=== PATIENT | male | born 1945 | race Caucasian/White ===

== ENCOUNTER → 2018-02-18 | Outpatient (CLI) | payer BC ==
[~2018-02-18] MED LIST: ACIPHEX; ALLEGRA180 MG PO; ANTIVERT 25MG25 MG PO; ASPIR-LOW81 MG PO; ASPIRIN 81M81 MG/TA2 PO; ASPIRIN E.C. 8181 MG PO; CELEBREX50 MG PO; CEPHALEXIN500 M1 PO; CHOLESTEROL MED; CIALIS5 MG PO; COLESTID 1GM1 G PO; COREG 25MG25 MG/TAB PO; COREG25 MG PO; CORGARD 40M40 MG/TAB PO; FLONASE NASAL S16 GM NS; HCTZ 25MG25 MG PO; KLONOPIN 1MG1 MG PO; KLONOPIN1 MG PO; LIPITOR20 MG PO; LIPITOR40 MG PO; LISINOPRIL10 MG PO; LISINOPRIL20 MG PO; LORTAB 7.5/5001 TAB PO; MIRAPEX 0.125MG PO; MIRAPEX 1MG PO; MIRAPEX PO; MIRAPEX0.25 MG PO; MIRAPEX0.5 MG PO; NEURONTIN300 MG/CAP PO; NEXIUM40 MG PO; NORCO 325 MG-51 TAB PO; NORCO 325 MG-7.1 TAB PO; NORVASC2.5 MG PO; PRILOSEC10 MG PO; PRINIVIL20 MG PO; PRINIVIL40 MG PO; PROTONIX 40MG T40 MG PO; PROTONIX40 MG PO; PROVENTIL0.09 MG/A1 IH; PROZAC 20MG20 MG PO; PROZAC20 MG PO; RHINOCORT0.032 MG/1 NS; ULTRAM ER200 MG PO; ZOFRAN 4MG T4 MG/TAB PO; ZOFRAN4 M1 PO
== END ==
LOC: COL.VAS 10:11
DX: I08.8 Other rheumatic multiple valve diseases (principal); R06.02 Shortness of breath; Z95.2 Presence of prosthetic heart valve

== ENCOUNTER → 2018-04-11 | Outpatient (CLI) | payer BC | LOC: COL.RAD 10:08 | DX: I71.2 Thoracic aortic aneurysm, without rupture (principal); Z95.2 Presence of prosthetic heart valve; Z98.890 Other specified postprocedural states | CPT/HCPCS: Q9967 ==

== ENCOUNTER 2019-06-27 03:54 | Emergency (ER) | payer BC ==
[~2019-06-27] VITALS: Ht 188 cm; Wt 109.1 kg
[2019-06-27 04:00] VITALS: TEMP 97.8
[2019-06-27 05:20] LABS: BASO % 0.3 % (0.0-2.0); EOS # 0.1 (0.0-0.7); EOS % 0.9 % (0-4.0); GRAN # 8.8 (1.4-6.5); GRAN % 89.9 % (42.2-75.2); HEMATOCRIT 46.8 % (42.0-52.0); HEMOGLOBIN 15.9 g/dl (13.5-18.0); LYMPH # 0.2 (1.2-3.4); LYMPH % 2.3 % (20.0-51.0); MEAN CELL VOLUME 88 fl (80.0-100.0); MEAN CORPUSCULAR HEMOGLOBIN 30 pg (27.0-31.0); MEAN CORPUSCULAR HGB CONC 34 g/dl (33.0-37.0); MEAN PLATELET VOLUME 9.5 fl (7.4-10.4); MONO # 0.6 (0.1-0.6); MONO % 6.3 % (1.7-9.3); PLATELET COUNT 160 K/mm3 (130-400); RED BLOOD COUNT 5.33 M/mm3 (4.20-5.60); REDCELL DISTRIBUTION WIDTH-CV 12.9 % (11.5-14.5)
[2019-06-27 05:25] LABS: INR 1.2 (0.8-3.0); PROTHROMBIN TIME 14.2 SECONDS (9.7-12.8)
[2019-06-27 05:32] LABS: ALANINE AMINOTRANSFERASE 18 U/L (21-72); ALKALINE PHOSPHATASE 112 U/L (50-136); ANION GAP 11 mmol/L (7-16); AST,SGOT 26 U/L (15-37); BILIRUBIN,TOTAL 1.9 mg/dL (0.0-1.0); BLOOD UREA NITROGEN 26 mg/dL (9-20); CALCIUM 9.1 mg/dL (8.4-10.2); CARBON DIOXIDE 22 mmol/L (22-30); CHLORIDE 105 mmol/L (98-107); CREATININE, serum 0.97 (0.66-1.25); GLUCOSE 115 mg/dL (74-106); LIPASE 106 U/L (23-300); POTASSIUM 3.9 mmol/L (3.4-5.0); SODIUM 138 mmol/L (137-145); TOTAL PROTEIN 6.5 gm/dL (6.4-8.2)
[2019-06-27 05:51] LABS: TROPONIN-I < 0.012 ng/mL (0.000-0.035)
[2019-06-27] MEDS ORDERED: PHENERGAN 25 TA25 MG PO (09:06)
[2019-06-27 11:20] VITALS: BP 115/64; PULSE 70
== END 2019-06-27 12:09 | disposition home or self-care (01) ==
LOC: COL.ER 03:54
PROVIDERS: Emergency Medicine
DX: R07.89 Other chest pain (principal); R11.2 Nausea with vomiting, unspecified; R19.7 Diarrhea, unspecified; I10 Essential (primary) hypertension; E78.5 Hyperlipidemia, unspecified; Z95.9 Presence of cardiac and vascular implant and graft, unspecified; Z87.891 Personal history of nicotine dependence; Z79.82 Long term (current) use of aspirin
CPT/HCPCS: C9113; J2270; J2405; J2550; J7030; Q9967

== ENCOUNTER 2019-11-08 10:30 | Observation (INO) | payer BC, MEDICARE ==
[~2019-11-08] VITALS: Ht 188 cm; Wt 109.2 kg
[~2019-11-08 10:30] MED LIST changes: +PHENERGAN 25 TA25 MG PO
[2019-11-08 11:24] LABS: COLLECTION METHOD CLEAN CATCH
[2019-11-08 11:27] LABS: BASO # 0.1 (0.0-0.2); BASO % 0.8 % (0.0-2.0); EOS # 0.2 (0.0-0.7); EOS % 2.1 % (0-4.0); GRAN # 5.2 (1.4-6.5); GRAN % 72.6 % (42.2-75.2); HEMATOCRIT 40.2 % (42.0-52.0); HEMOGLOBIN 13.2 g/dl (13.5-18.0); LYMPH # 1.1 (1.2-3.4); LYMPH % 14.8 % (20.0-51.0); MEAN CELL VOLUME 91 fl (80.0-100.0); MEAN CORPUSCULAR HEMOGLOBIN 30 pg (27.0-31.0); MEAN CORPUSCULAR HGB CONC 33 g/dl (33.0-37.0); MEAN PLATELET VOLUME 9.8 fl (7.4-10.4); MONO # 0.7 (0.1-0.6); MONO % 9.6 % (1.7-9.3); PLATELET COUNT 146 K/mm3 (130-400); RED BLOOD COUNT 4.44 M/mm3 (4.20-5.60)
[2019-11-08 11:33] LABS: MUCOUS Present /lpf; PH 6 (5-8); SQUAMOUS EPITHELIAL None Seen /hpf; URINE APPEARANCE Clear; URINE BACTERIA None Seen /hpf; URINE BILIRUBIN Negative (NEGATIVE); URINE BLOOD Negative (NEGATIVE); URINE COLOR Yellow; URINE GLUCOSE Negative (NEGATIVE); URINE KETONE Negative (NEGATIVE); URINE LEUKOCYTE ESTERASE Negative (NEGATIVE); URINE NITRATE Negative (NEGATIVE); URINE PROTEIN(semi-quant) Negative (NEGATIVE); URINE RBC 0-2 /hpf; URINE UROBILINOGEN >=4.0 mg/dL (NEGATIVE)
[2019-11-08 11:45] LABS: CREATININE, serum 1.36 (0.66-1.25); POTASSIUM 4.8 mmol/L (3.4-5.0)
[2019-11-08 11:52] LABS: BILIRUBIN,TOTAL 45.6 mg/dL (0.0-1.0)
[2019-11-08 11:58] LABS: CALCIUM 5.9 mg/dL (8.4-10.2)
[2019-11-08 12:14] LABS: ALBUMIN 3.7 gm/dL (3.5-5.0); TOTAL PROTEIN 6.1 gm/dL (6.4-8.2)
[2019-11-08 12:58] LABS: ALBUMIN 3.5 gm/dL (3.5-5.0); BILIRUBIN,TOTAL 1.2 mg/dL (0.0-1.0); CALCIUM 8.8 mg/dL (8.4-10.2); CREATININE, serum 0.9 (0.66-1.25); POTASSIUM 4.1 mmol/L (3.4-5.0); TOTAL PROTEIN 5.8 gm/dL (6.4-8.2)
[2019-11-08 13:41] LABS: BILIRUBIN,TOTAL 1.2 mg/dL (0.0-1.0)
[2019-11-08 13:45] LABS: C-REACTIVE PROTEIN < 0.5 mg/dL (0.0-0.9)
[2019-11-08 14:01] LABS: BILIRUBIN,DIRECT 0.1 mg/dL (0.0-0.4)
[2019-11-08] MEDS ORDERED: COZAAR 25MG25 MG/TAB PO (16:07)
[2019-11-08 17:46] VITALS: BP 159/65; PULSE 48; TEMP 97.8
[2019-11-08 17:48] VITALS: BP 159/65; PULSE 48; TEMP 97.8
[2019-11-08 19:24] VITALS: BP 112/52; PULSE 49; TEMP 97.5
--- NOTE | 2019-11-08 20:19 | NUR ---
Spoke with pt regarding CPAP. Pt refuses CPAP stating that he has not worn on for years since he discovered "breathe right strips" work well for him.
--- NOTE | 2019-11-08 21:30 | NUR ---
PATIENT IN BED, TAKES HS MEDS. DENIES NEED FOR PAIN MEDS AT THIS TIME. IVF INFUSING TO LEFT AC WITHOUT PROBLEM. ABDOMEN SOFT, BS ACTIVE. TAKES SNACK AT THIS TIME.
[2019-11-08 23:21] VITALS: BP 118/55; PULSE 48; TEMP 97.4
--- NOTE | 2019-11-09 | NUR ---
TAKES SCHEDULED MOTRIN WITHOUT PROBLEM. DENIES NEED FOR SOMETHING STRONGER FOR PAIN.
[2019-11-09 03:10] VITALS: BP 130/51; PULSE 49; TEMP 98.2
--- NOTE | 2019-11-09 05:39 | NUR ---
Pt awake, lab drawn. Takes AM meds at this time. Reports only "soreness" to right flank and feels much better.
[2019-11-09 06:10] LABS: BASO # 0.1 (0.0-0.2); BASO % 1.2 % (0.0-2.0); EOS # 0.2 (0.0-0.7); EOS % 4.4 % (0-4.0); GRAN # 2.4 (1.4-6.5); GRAN % 56.4 % (42.2-75.2); HEMOGLOBIN 11.7 g/dl (13.5-18.0); LYMPH # 1.1 (1.2-3.4); LYMPH % 26.2 % (20.0-51.0); MEAN CELL VOLUME 92 fl (80.0-100.0); MEAN CORPUSCULAR HEMOGLOBIN 30 pg (27.0-31.0); MEAN CORPUSCULAR HGB CONC 32 g/dl (33.0-37.0); MEAN PLATELET VOLUME 10.3 fl (7.4-10.4); MONO # 0.5 (0.1-0.6); MONO % 11.6 % (1.7-9.3); PLATELET COUNT 128 K/mm3 (130-400); RED BLOOD COUNT 3.96 M/mm3 (4.20-5.60)
[2019-11-09 06:12] LABS: HEMATOCRIT 36.3 % (42.0-52.0)
[2019-11-09 06:16] LABS: ALANINE AMINOTRANSFERASE 18 U/L (21-72); ALKALINE PHOSPHATASE 84 U/L (50-136); ANION GAP 6 mmol/L (7-16); AST,SGOT 15 U/L (15-37); BILIRUBIN,TOTAL 0.7 mg/dL (0.0-1.0); BLOOD UREA NITROGEN 21 mg/dL (9-20); CALCIUM 8.6 mg/dL (8.4-10.2); CARBON DIOXIDE 27 mmol/L (22-30); CHLORIDE 105 mmol/L (98-107); CREATININE, serum 1.06 (0.66-1.25); GLUCOSE 84 mg/dL (74-106); MAGNESIUM 1.9 mg/dL (1.6-2.3); POTASSIUM 4.1 mmol/L (3.4-5.0); SODIUM 138 mmol/L (137-145); TOTAL PROTEIN 5.1 gm/dL (6.4-8.2)
[2019-11-09 06:31] LABS: TROPONIN-I < 0.012 ng/mL (0.000-0.035)
[2019-11-09 08:02] VITALS: BP 114/43; PULSE 51; TEMP 97.6
[2019-11-09] MEDS ORDERED: FLEXERIL 1010 MG/TAB PO (08:54)
--- NOTE | 2019-11-09 10:20 | NUR ---
Patient alert and oriented, answers questions appropriately. See assessment. Abdomen soft, non tender, non distended. Bowel sounds active x4 quads. +Flatus. No c/o abdominal pain or discomfort. No other c/o at this time.
[2019-11-09] MEDS ORDERED: NORCO 325 MG-51 TAB PO (10:25)
--- NOTE | 2019-11-09 10:39 | NUR ---
Dr Dorsey in to see patient.
--- NOTE | 2019-11-09 11:12 | NUR ---
Discharge instructions reviewed with patient and spouse, verbalized understanding. Discharged ambulatory to auto/home with spouse at 1110.
== END 2019-11-09 11:15 | disposition home or self-care (01) ==
LOC: COL.ER 10:30 → SURG 14:40
PROVIDERS: Emergency Medicine; ADMIT Internal Medicine
DX: R10.9 Unspecified abdominal pain (principal); I10 Essential (primary) hypertension; E78.5 Hyperlipidemia, unspecified; G47.33 Obstructive sleep apnea (adult) (pediatric); Z87.19 Personal history of other diseases of the digestive system; Z79.82 Long term (current) use of aspirin; Z85.46 Personal history of malignant neoplasm of prostate; Z90.79 Acquired absence of other genital organ(s); Z95.2 Presence of prosthetic heart valve; Z96.652 Presence of left artificial knee joint; Z87.891 Personal history of nicotine dependence; Z82.3 Family history of stroke; Z82.49 Family history of ischemic heart disease and other diseases of the circulatory system; Z80.41 Family history of malignant neoplasm of ovary; G62.9 Polyneuropathy, unspecified
CPT/HCPCS: A4216; G0378; J0696; J1170; J1650; J1885; J2270; J2405; J7030; Q9967

== ENCOUNTER → 2020-01-22 | Outpatient (CLI) | payer BC ==
[~2020-01-22] MED LIST changes: +COZAAR 25MG25 MG/TAB PO; +FLEXERIL 1010 MG/TAB PO
== END ==
LOC: COL.RAD 12:07
DX: K80.20 Calculus of gallbladder without cholecystitis without obstruction (principal); Z98.890 Other specified postprocedural states; R42 Dizziness and giddiness; R06.00 Dyspnea, unspecified
CPT/HCPCS: Q9967

== ENCOUNTER 2020-04-26 03:26 | Observation (INO) | payer BC ==
[~2020-04-26] VITALS: Ht 188 cm; Wt 115.8 kg
[2020-04-26 03:53] LABS: BASO # 0.1 (0.0-0.2); BASO % 0.6 % (0.0-2.0); EOS # 0.2 (0.0-0.7); EOS % 1.8 % (0-4.0); GRAN # 6.3 (1.4-6.5); GRAN % 76.4 % (42.2-75.2); HEMATOCRIT 42.9 % (42.0-52.0); HEMOGLOBIN 14.2 g/dl (13.5-18.0); LYMPH % 12.1 % (20.0-51.0); MEAN CELL VOLUME 89 fl (80.0-100.0); MEAN CORPUSCULAR HEMOGLOBIN 30 pg (27.0-31.0); MEAN CORPUSCULAR HGB CONC 33 g/dl (33.0-37.0); MEAN PLATELET VOLUME 9.6 fl (7.4-10.4); MONO # 0.7 (0.1-0.6); MONO % 8.7 % (1.7-9.3); PLATELET COUNT 176 K/mm3 (130-400); RED BLOOD COUNT 4.81 M/mm3 (4.20-5.60); REDCELL DISTRIBUTION WIDTH-CV 12.5 % (11.5-14.5)
[2020-04-26 03:59] LABS: PROTHROMBIN TIME 11.7 SECONDS (9.7-12.8)
[2020-04-26 04:01] LABS: PARTIAL THROMBOPLASTIN TIME 34.2 SECONDS (26.0-37.0)
[2020-04-26 04:02] LABS: ALANINE AMINOTRANSFERASE 18 U/L (4-49); ALKALINE PHOSPHATASE 125 U/L (50-136); ANION GAP 8 mmol/L (7-16); AST,SGOT 27 U/L (15-37); BILIRUBIN,TOTAL 0.9 mg/dL (0.0-1.0); BLOOD UREA NITROGEN 17 mg/dL (9-20); CALCIUM 9.6 mg/dL (8.4-10.2); CARBON DIOXIDE 26 mmol/L (22-30); CHLORIDE 102 mmol/L (98-107); CREATINE KINASE 167 U/L (55-170); CREATININE, serum 1.09 (0.66-1.25); GLUCOSE 106 mg/dL (74-106); POTASSIUM 4.4 mmol/L (3.4-5.0); SODIUM 136 mmol/L (137-145); TOTAL PROTEIN 6.6 gm/dL (6.4-8.2)
[2020-04-26 04:13] LABS: TROPONIN-I < 0.012 ng/mL (0.000-0.035)
[2020-04-26 04:28] LABS: PROLACTIN 6.3 ng/mL (3.7-17.9)
[2020-04-26 04:30] LABS: COLLECTION METHOD CLEAN CATCH
[2020-04-26 04:37] LABS: PH 6 (5-8); SQUAMOUS EPITHELIAL None Seen /hpf; URINE APPEARANCE Clear; URINE BACTERIA None Seen /hpf; URINE BILIRUBIN Negative (NEGATIVE); URINE BLOOD Negative (NEGATIVE); URINE COLOR Yellow; URINE GLUCOSE Negative (NEGATIVE); URINE KETONE Negative (NEGATIVE); URINE LEUKOCYTE ESTERASE Negative (NEGATIVE); URINE NITRATE Negative (NEGATIVE); URINE PROTEIN(semi-quant) Negative (NEGATIVE); URINE RBC 0-2 /hpf; URINE UROBILINOGEN Negative (NEGATIVE)
[2020-04-26 05:45] VITALS: BP 152/88; PULSE 56; TEMP 98.1
--- NOTE | 2020-04-26 06:27 | NUR ---
PATIENT CAME UP TO THE UNIT FROM THE EMERGENCY DEPARTMENT. PATIENT IS ALERT AND ORIENTATED. SOME QUESTIONS IT DOES TAKE HIM SOME TIME TO ANSWER. PATIENT IS ABLE TO HOLD BOTH LEGS UP FOR A FEW SECONDS AND THEN THEY START TO DRIFT DOWN TOWARDS THE BED. PATIENT TONGUE IS PURPLE AND BLUE IN COLOR WITH BITE GIRALDO NOTED. OLD SCAR ON HIS LEFT KNEE IS PRESENT FROM A PREVIOUS SURGERY. PATIENT DOES NOT HAVE A MEDICATION LIST WITH HIM AT THIS TIME IT IS AT HOME. MED REC UNABLE TO BE COMPLETED BY THIS NURSE. PATIENT HAS AN INT TO HIS LEFT AC. PATIENT IS UNABLE TO RECALL ANY PAST EVENTS. PATIENT IS TALKING TO HIS ON THE PHONE
[2020-04-26] MEDS ORDERED: ALDACTONE 25MG25 M1 PO (07:45)
[2020-04-26] MEDS ORDERED: VITAMIN C500 MG PO (07:46)
[2020-04-26 11:56] VITALS: BP 153/69; PULSE 52; TEMP 98
--- NOTE | 2020-04-26 12:30 | NUR ---
Patients MRI is completed. Patient has been doing well this morning. He stated feeling dizzy and weak at times when he gets up to the side of the bed. Explained to move slow when he stands up. No complaints of pain or nausea. Patient is wanting to eat, explained will check with to doctor and order food if he can have it. Aside from some slurred speach due to swollen tongue, neuro checks have been good. No other changes at this time. Call light within reach.
--- NOTE | 2020-04-26 14:20 | NUR ---
Cigarette Examiner met with the patient to complete inital intake. The patient lives in [place] with his , Elsi ([phone]). The patient has a cane and is independent with ADLs. The patient's PCP is Dr. Blankenship and patient receives medications from [facility] pharmacy with no difficulties. The patient has advanced directives in the EMR. The patient plans to return home at discharge. SW contacted the patient's , Elsi to discuss the discharge plan. She has no concerns about the patient returning home. PT/OT were ordered. Will continue to [facility].
[2020-04-26 15:37] VITALS: BP 146/75; PULSE 55; TEMP 97.8
--- NOTE | 2020-04-26 18:28 | NUR ---
Patient has continued to do well. No other changes from this morning. Patient is hoping to discharge tomorrow. PT/OT will work with him tomorrow because he still feels dizzy.
[2020-04-26 18:59] VITALS: BP 127/57; PULSE 57; TEMP 98.1
--- NOTE | 2020-04-26 23:30 | NUR ---
Pt assessment completed and charted, alert, oriented, roomair. Meds provided as per MAR, tolerated well. I/V flushed without complications. No N/V/D, numbness, tingling, SOB, pain as per pt. Helped pt to settled down on bed, call light on reach. No further needs at this time.
[2020-04-27 00:42] VITALS: BP 127/56; PULSE 51; TEMP 97.6
[2020-04-27 03:55] VITALS: BP 134/70; PULSE 49; TEMP 97.7
[2020-04-27 05:31] LABS: FOLATE (FOLIC ACID) 8.1 ng/mL (>=4.0)
--- NOTE | 2020-04-27 06:48 | NUR ---
Pt had an uneventful night, slept on and off throught out the night. Morning meds provided as per DEC. No further needs at this time.
[2020-04-27 07:01] LABS: BASO % 0.6 % (0.0-2.0); EOS # 0.2 (0.0-0.7); EOS % 2.9 % (0-4.0); GRAN # 4.5 (1.4-6.5); GRAN % 64.2 % (42.2-75.2); HEMATOCRIT 41.4 % (42.0-52.0); HEMOGLOBIN 13.8 g/dl (13.5-18.0); LYMPH # 1.6 (1.2-3.4); LYMPH % 22.3 % (20.0-51.0); MEAN CELL VOLUME 91 fl (80.0-100.0); MEAN CORPUSCULAR HEMOGLOBIN 30 pg (27.0-31.0); MEAN CORPUSCULAR HGB CONC 33 g/dl (33.0-37.0); MEAN PLATELET VOLUME 9.8 fl (7.4-10.4); MONO # 0.7 (0.1-0.6); MONO % 9.7 % (1.7-9.3); PLATELET COUNT 151 K/mm3 (130-400); RED BLOOD COUNT 4.57 M/mm3 (4.20-5.60); REDCELL DISTRIBUTION WIDTH-CV 12.8 % (11.5-14.5)
[2020-04-27 07:19] LABS: ALBUMIN 3.5 gm/dL (3.5-5.0); BILIRUBIN,TOTAL 1.5 mg/dL (0.0-1.0); CREATININE, serum 1.01 (0.66-1.25); TOTAL PROTEIN 6.1 gm/dL (6.4-8.2)
--- NOTE | 2020-04-27 07:31 | NUR ---
Report given to RON Montanez.
[2020-04-27 07:47] VITALS: BP 124/79; PULSE 52; TEMP 98
--- NOTE | 2020-04-27 09:30 | NUR ---
Assessment completed, alert/oriented, vital signs stable, denies pain or discomfort, reports he got good rest last night and is feeling well this morning, no seizure activity reported or noted by shift production associate nursing staff, heart regular/ bradycardic/ SB on tele, lungs CTA/ no reps.difficulty noted, he is sitting up eating breakfast, he does report his tounge is still sore from biting in during his seizure the othe night/ some bruising and swelling is noted upon assessment, denies other needs, scheduled for EEG today, Seiz p/c in place, will continue to monitor
[2020-04-27 12:18] VITALS: BP 141/70; PULSE 48; TEMP 97.7
[2020-04-27 12:22] VITALS: BP 140/88
[2020-04-27 12:25] VITALS: BP 140/101
[2020-04-27] MEDS ORDERED: KEPPRA1000 MG PO (14:17)
--- NOTE | 2020-04-27 15:31 | NUR ---
Patient discharging home, instructions given on discharge orders, instructed to follow up with PCP and Neuro as scheduled, instructed no driving for 6 months per [place] [employer] law and untill cleared by a neurologist, instructed on new medication Keppra/ script sent to pharmacy for him, instructed to stop Coreg for now due to bradycardia, printed education given on meds and diagnosis, IV and tele removed, leaving with his , CHEMICAL TREATMENT PLANT TECHNICIAN escorted him out the door
[2020-04-28 20:42] LABS: CADMIUM BLOOD 0.2 ng/mL (<5.0); LEAD,SERUM** 1.5 mcg/dL (<5.0); MERCURY,SERUM <1 ng/mL (<10)
[2020-04-30 14:26] LABS: A/G RATIO (PEP) 1.38 (()); BETA GLOBULINS (PEP) 0.8 g/dL (0.7-1.2)
== END 2020-04-27 16:07 | disposition home or self-care (01) ==
LOC: COL.ER 03:26 → MEDICAL 04:51
PROVIDERS: Emergency Medicine; Psychiatry & Neurology Neurology
DX: G40.409 Other generalized epilepsy and epileptic syndromes, not intractable, without status epilepticus (principal); I10 Essential (primary) hypertension; E78.5 Hyperlipidemia, unspecified; R00.1 Bradycardia, unspecified; N40.0 Benign prostatic hyperplasia without lower urinary tract symptoms; G62.9 Polyneuropathy, unspecified; E66.9 Obesity, unspecified; G89.29 Other chronic pain; M19.90 Unspecified osteoarthritis, unspecified site; Z85.46 Personal history of malignant neoplasm of prostate; Z90.79 Acquired absence of other genital organ(s); Z95.4 Presence of other heart-valve replacement; Z87.891 Personal history of nicotine dependence; Z79.82 Long term (current) use of aspirin; Z79.899 Other long term (current) drug therapy
CPT/HCPCS: 99239; G0378; J1644; J1953

== ENCOUNTER → 2020-06-15 | Outpatient (CLI) | payer BC ==
[~2020-06-15] MED LIST changes: +ALDACTONE 25MG25 M1 PO; +KEPPRA1000 MG PO; +VITAMIN C500 MG PO
== END ==
LOC: ZCOL.LAB 16:15
DX: U07.1 COVID-19 (principal)

== ENCOUNTER → 2020-09-20 | Outpatient (CLI) | payer BC | LOC: COL.RAD 12:59 | DX: I71.2 Thoracic aortic aneurysm, without rupture (principal) | CPT/HCPCS: Q9967 ==

== ENCOUNTER 2021-05-19 10:16 | Observation (INO) | payer MEDICARE ==
[~2021-05-19] VITALS: Ht 188 cm; Wt 115.9 kg
[2021-05-19] MEDS ORDERED: MIRAPEX0.25 MG PO (10:42)
[2021-05-19] MEDS ORDERED: MIRAPEX0.5 MG PO (10:42)
[2021-05-19 10:44] LABS: BASO # 0.1 (0.0-0.2); BASO % 0.7 % (0.0-2.0); EOS % 0.6 % (0-4.0); GRAN # 5.1 (1.4-6.5); GRAN % 73.6 % (42.2-75.2); HEMATOCRIT 41.1 % (42.0-52.0); HEMOGLOBIN 14.1 g/dl (13.5-18.0); LYMPH # 0.8 (1.2-3.4); LYMPH % 11.8 % (20.0-51.0); MEAN CELL VOLUME 88 fl (80.0-100.0); MEAN CORPUSCULAR HEMOGLOBIN 30 pg (27.0-31.0); MEAN CORPUSCULAR HGB CONC 34 g/dl (33.0-37.0); MEAN PLATELET VOLUME 9.3 fl (7.4-10.4); MONO # 0.9 (0.1-0.6); PLATELET COUNT 171 K/mm3 (130-400); RED BLOOD COUNT 4.66 M/mm3 (4.20-5.60); REDCELL DISTRIBUTION WIDTH-CV 12.5 % (11.5-14.5)
[2021-05-19] MEDS ORDERED: COREG 6.256.25 MG/TA PO (10:44)
[2021-05-19] MEDS ORDERED: REVATIO20 MG PO (10:44)
[2021-05-19] MEDS ORDERED: VITAMIN D250 MCG PO (10:44)
[2021-05-19] MEDS ORDERED: FLONASEALLERGY NS (10:45)
[2021-05-19 10:52] LABS: ALANINE AMINOTRANSFERASE 18 U/L (4-49); ALBUMIN 3.9 gm/dL (3.5-5.0); ALKALINE PHOSPHATASE 109 U/L (50-136); ANION GAP 8 mmol/L (7-16); AST,SGOT 24 U/L (15-37); BILIRUBIN,TOTAL 1.3 mg/dL (0.0-1.0); BLOOD UREA NITROGEN 16 mg/dL (9-20); CALCIUM 9.1 mg/dL (8.4-10.2); CARBON DIOXIDE 25 mmol/L (22-30); CHLORIDE 104 mmol/L (98-107); CREATININE, serum 1.01 (0.66-1.25); GLUCOSE 99 mg/dL (74-106); POTASSIUM 3.7 mmol/L (3.4-5.0); SODIUM 137 mmol/L (137-145); TOTAL PROTEIN 6.5 gm/dL (6.4-8.2)
[2021-05-19 11:08] LABS: TROPONIN-I < 0.012 ng/mL (0.000-0.035)
[2021-05-19 14:08] VITALS: BP 117/54; PULSE 63; TEMP 98.4
[2021-05-19 17:00] VITALS: BP 146/70; PULSE 60; TEMP 97.5
[2021-05-19 17:24] LABS: PARTIAL THROMBOPLASTIN TIME 35.7 SECONDS (26.0-37.0)
--- NOTE | 2021-05-19 18:18 | NUR ---
Patient admitted from the ED with complaints of chest pain. Report recieved from RON Ryan. Upon initial assessment normal S1 and S2 sounds present, radial and pedal pulses +2 bilaterally, lungs clear to auscultation, bowel sound present in all four quadrants, patient A&O, no skin issues noted. Patient does C/O aching chest pain rated a 6/10. Patient voiced his concerns over recieving opioids. Spoke with Dr. Raines, tylenol ordered and administered. Heparin drip started per orders. Patient will be getting a heart cath tomorrow. Consent signed and on the chart. VSS. Scheduled medications given. Patient orientated to room. Patient denies any further needs at this time. Call light in reach.
[2021-05-19 19:32] VITALS: BP 142/97; PULSE 57; TEMP 97.5
[2021-05-20] VITALS (14 sets, daily range): BP systolic 115–153; BP diastolic 70–96; PULSE 60–71; TEMP 97.1–98.3
[2021-05-20 04:00] LABS: CHOLESTEROL RISK RATIO 3.1; CREATININE, serum 1.03 (0.66-1.25); POTASSIUM 3.8 mmol/L (3.4-5.0)
[2021-05-20 04:10] LABS: INR 1.3 (0.8-3.0); PROTHROMBIN TIME 14.2 SECONDS (9.7-12.8)
[2021-05-20 04:40] LABS: PARTIAL THROMBOPLASTIN TIME 105.6 SECONDS (26.0-37.0)
--- NOTE | 2021-05-20 05:19 | NUR ---
HEPT GTT INFUSING AT 900U/HR, FROM PREVIOUS 1000U/HR, PT MET GOAL FROM PREVIOUS DRAW AT 2100 AND DID NOT REQUIRE CHANGE. PT HAS CONTINUED TO REPORT MILD CHEST PAIN WITH RADIATION TO LEFT ARM, EKG COMPLETE AT 0200 HOURS, AT 0520 THIS NURSE RETURNED TO ROOM TO EVALUATE PAIN, PT DENIED PAIN AT THAT TIME. PT REMAINS A/OX4, VSS, 02 ROOM AIR, PT DENIES N,V,D. PT EXPRESSES NO ADDITIONAL NEEDS AT THIS TIME. ELIOT LIGHT WITHIN REACH.
--- NOTE | 2021-05-20 10:14 | NUR ---
Initial visit; Patient thanked Front Office Supervisor for offering encouragement and prayer prior to his 'Procedure' this morning.
--- NOTE | 2021-05-20 11:22 | NUR ---
SEE MERGE DOCUMENTATION FOR MEDICATION ADMINISTRATION AND INTRA/POST PROCEDURE SEDATION ASSESSMENTS.
--- NOTE | 2021-05-20 13:46 | NUR ---
SARAH met with the patient and his , Elsi (ph#[phone]), to discuss discharge plan. The patient lives in [place] with his . He reports independence with ADLs and has a cane and walker available, if needed. He has a CPAP. The patient's PCP is Dr. Nii Blankenship and he receives his medications from [facility]. He reports no difficulties obaining his meds. The patient does not have a DPOA-HC in EMR, but he states that he does have one completed and that it designates his . His states that they should have the DPOA-HC at home. The patient plans to return home with his upon discharge. No additional needs at this time. *Discharge plan: home with *
--- NOTE | 2021-05-20 16:30 | NUR ---
PT BEING DC AT THIS TIME. NO S/S OF DISTRESS NOTICED. V/S STABLE. PT TR BAND REMOVED, NO BLEEDING OR HEMATOMA. SPOUSE AT THE BEDSIDE. DC INSTRUCTIONS REVIEWED WITH PT. ALL QUESTIONS ANSWERED. IV ACCESS AND TELE MONITOR REMOVED. PT TOOL ALL HIS BELONGINGS INCLUDING HIS CPAP. PT TAKEN TO SPOUSE VEHICLE VIA WHEELCHAIR.
== END 2021-05-20 16:52 | disposition home or self-care (01) ==
LOC: COL.ER 10:16 → MEDICAL 12:15
PROVIDERS: Physician Assistant; ADMIT Internal Medicine
DX: R07.89 Other chest pain (principal); I10 Essential (primary) hypertension; E78.5 Hyperlipidemia, unspecified; G25.81 Restless legs syndrome; K21.9 Gastro-esophageal reflux disease without esophagitis; I71.9 Aortic aneurysm of unspecified site, without rupture; I34.0 Nonrheumatic mitral (valve) insufficiency; G40.909 Epilepsy, unspecified, not intractable, without status epilepticus; Z20.822 Contact with and (suspected) exposure to COVID-19; I44.0 Atrioventricular block, first degree; G47.33 Obstructive sleep apnea (adult) (pediatric); J30.9 Allergic rhinitis, unspecified; M19.90 Unspecified osteoarthritis, unspecified site; N52.9 Male erectile dysfunction, unspecified; E66.9 Obesity, unspecified; Z68.32 Body mass index [BMI] 32.0-32.9, adult; Z95.2 Presence of prosthetic heart valve; Z85.46 Personal history of malignant neoplasm of prostate; Z79.82 Long term (current) use of aspirin; Z79.899 Other long term (current) drug therapy
CPT/HCPCS: C1769; G0378; J1644; J2250; J2270; J3010; J7030; Q9967

== ENCOUNTER 2022-03-30 07:40 | Day surgery (SDC) | payer MEDICARE ==
[2022-03-30] VITALS (13 sets, daily range): BP systolic 126–165; BP diastolic 52–100; PULSE 60–78; TEMP 97.9–98.1
[~2022-03-30] VITALS: Ht 188 cm; Wt 113.1 kg
[~2022-03-30 07:40] MED LIST changes: +COREG 3.123.125 MG/T PO; +FLONASEALLERGY NS; +REVATIO20 MG PO; +VITAMIN D250 MCG PO
[2022-03-30 09:08] LABS: HEMATOCRIT 40.1 % (42.0-52.0); HEMOGLOBIN 13.7 g/dl (13.5-18.0); MEAN CELL VOLUME 88 fl (80.0-100.0); MEAN CORPUSCULAR HEMOGLOBIN 30 pg (27-31); MEAN CORPUSCULAR HGB CONC 34 g/dl (33.0-37.0); MEAN PLATELET VOLUME 9.4 fl (7.4-10.4); PLATELET COUNT 174 K/mm3 (130-400); RED BLOOD COUNT 4.58 M/mm3 (4.20-5.60); REDCELL DISTRIBUTION WIDTH-CV 12.5 % (11.5-14.5)
[2022-03-30] MEDS ORDERED: PROTONIX 40MG T40 MG PO (09:10)
[2022-03-30] MEDS ORDERED: KEPPRA1000 MG PO (09:10)
[2022-03-30] MEDS ORDERED: ELIQUIS 5MG PO (09:11)
[2022-03-30 09:12] LABS: INR 1.7 (0.8-3.0); PROTHROMBIN TIME 19.4 SECONDS (9.7-12.8)
[2022-03-30 09:24] LABS: CREATININE, serum 1.07 mg/dL (0.72-1.25); MAGNESIUM 1.9 mg/dL (1.6-2.6)
[2022-03-30 09:44] LABS: THYROID STIMULATING HORMONE 0.827 uIU/mL (0.350-4.940)
--- NOTE | 2022-03-30 12:10 | NUR ---
Report received pt will stay for admission from Dr Sri Morgan's nurse.
--- NOTE | 2022-03-30 14:19 | NUR ---
Report to Coral Krishna.
--- NOTE | 2022-03-30 14:41 | NUR ---
Pt to room 308.
--- NOTE | 2022-03-30 15:25 | NUR ---
PT ADMITTED TO UNIT. ADMISSION INTAKE AND ASSESSMENT COMPLETED. ORIENTED PT TO ROOM. UPDATED PT ON POC. PT DENIES ANY PAIN OR NEEDS AT THIS TIME. WILL CONTINUE TO MONITOR.
--- NOTE | 2022-03-30 22:50 | NUR ---
Patient assessed around 2114. Alert and oriented x 4, and able to make needs known. Denies having pain and discomfort. Peripheral INT to left hand. Denies SOB and dyspnea. LS CTA. HRR. Telemetry in place. BSAx4. Abdomen soft and non-tender. 1+ edema BLE. Printed out packet on Sotalol for patient, and went over medication with patient. All questions answered. Voices no further questions, needs, or concerns at this time. In bed recliner with call light within reach.
[2022-03-31 00:32] VITALS: BP 124/64; PULSE 60; TEMP 97.5
[2022-03-31 03:29] VITALS: BP 107/64; PULSE 69; TEMP 97.7
[2022-03-31 05:30] VITALS: BP 126/64; PULSE 55
--- NOTE | 2022-03-31 06:06 | NUR ---
Patient remains in sinus rhythm. Denies pain and discomfort. EKG this morning abnormal. Attempted to call to Dr. Fierro, no response at this time. Patient denies pain, discomfort, dizzyness, etc. VSS. In bed with call light within reach.
[2022-03-31 06:19] LABS: BASO # 0.1 K/mm3 (0.0-0.2); BASO % 0.7 % (0.0-2.0); EOS # 0.2 K/mm3 (0.0-0.7); EOS % 2.4 % (0.0-4.0); GRAN # 5.7 K/mm3 (1.4-6.5); GRAN % 68.4 % (42.2-75.2); HEMATOCRIT 39.5 % (42.0-52.0); LYMPH # 1.7 K/mm3 (1.2-3.4); LYMPH % 19.8 % (20.0-51.0); MEAN CELL VOLUME 90 fl (80.0-100.0); MEAN CORPUSCULAR HEMOGLOBIN 30 pg (27-31); MEAN CORPUSCULAR HGB CONC 33 g/dl (33.0-37.0); MEAN PLATELET VOLUME 9.7 fl (7.4-10.4); MONO # 0.7 K/mm3 (0.1-0.6); MONO % 8.2 % (1.7-9.3); PLATELET COUNT 163 K/mm3 (130-400); RED BLOOD COUNT 4.38 M/mm3 (4.20-5.60); REDCELL DISTRIBUTION WIDTH-CV 12.5 % (11.5-14.5)
[2022-03-31 06:41] LABS: CALCIUM 8.9 mg/dL (8.4-10.2); CREATININE, serum 1.12 mg/dL (0.72-1.25); MAGNESIUM 1.9 mg/dL (1.6-2.6)
[2022-03-31 07:01] VITALS: BP 127/63; PULSE 56; TEMP 97.7
--- NOTE | 2022-03-31 10:42 | NUR ---
Initial visit; Patient thanked Urology Physician for looking in on him and offering spiritual care. Patient talked with Urology Physician about the Sotalol Trial and how he has been doing well except for a weak experience while sitting up. Urology Physician reiterated how important it is for him to inform his Nurse of his total experience. He is doing so, he says. Sebas was receptive to Urology Physician offering prayer and keeping him in her prayers. Urology Physician will follow up while he is a patient here.
--- NOTE | 2022-03-31 10:59 | NUR ---
SARAH met with the patient and his , Elsi (ph#[phone]), to discuss discharge plan. The patient lives in [place] with his . He reports independence with ADLs and has a cane and walker. The patient's PCP is Dr. Nii Blankenship and [facility]. The patient has a Declaration is EMR, but not a DPOA-HC. SW inquired if he had one. The patient's reports that he does have one completed and that it designates her. The patient plans to return home with his upon discharge. No additional needs at this time. *Discharge plan: home with *
[2022-03-31 11:21] VITALS: BP 124/68; PULSE 55; TEMP 97.9
[2022-03-31] MEDS ORDERED: BETAPACE 80MG80 MG PO (12:53)
--- NOTE | 2022-03-31 13:53 | NUR ---
PT VSS, ALERT AND ORIENT X4,DC FROM THE UNIT, TELE REMOVED, IV REMOVED TIP INTACT, DC SUMMARY INFORMATION GIVEN TO PT VERBALIZE UNDERSTANDING PT ESCORTED OUT OF THE UNIT.
== END 2022-03-31 13:45 | disposition home or self-care (01) ==
LOC: COL.CAR 07:40 → MEDICAL 14:40 → COL.CAR 15:22 → MEDICAL 15:23 → COL.CAR 03-31 13:45
PROVIDERS: Internal Medicine Cardiovascular Disease
DX: I48.91 Unspecified atrial fibrillation (principal); E66.9 Obesity, unspecified; G47.33 Obstructive sleep apnea (adult) (pediatric); Z79.01 Long term (current) use of anticoagulants; Z77.22 Contact with and (suspected) exposure to environmental tobacco smoke (acute) (chronic); Z68.32 Body mass index [BMI] 32.0-32.9, adult; I10 Essential (primary) hypertension; I71.2 Thoracic aortic aneurysm, without rupture; E78.2 Mixed hyperlipidemia
CPT/HCPCS: J2704; J7120

== ENCOUNTER 2022-04-13 09:34 | Emergency (ER) | payer MEDICARE ==
[~2022-04-13] VITALS: Ht 188 cm; Wt 113.6 kg
[~2022-04-13 09:34] MED LIST changes: +BETAPACE 80MG80 MG PO; +ELIQUIS 5MG PO; +MASON NATURAL2000 IU PO; -VITAMIN D250 MCG PO
[2022-04-13 10:02] LABS: BASO % 0.6 % (0.0-2.0); EOS # 0.1 K/mm3 (0.0-0.7); EOS % 1.3 % (0.0-4.0); GRAN # 4.8 K/mm3 (1.4-6.5); GRAN % 70.5 % (42.2-75.2); HEMATOCRIT 45.5 % (42.0-52.0); HEMOGLOBIN 15.8 g/dl (13.5-18.0); LYMPH # 0.8 K/mm3 (1.2-3.4); LYMPH % 11.9 % (20.0-51.0); MEAN CELL VOLUME 87 fl (80.0-100.0); MEAN CORPUSCULAR HEMOGLOBIN 30 pg (27-31); MEAN CORPUSCULAR HGB CONC 35 g/dl (33.0-37.0); MEAN PLATELET VOLUME 9.5 fl (7.4-10.4); MONO # 1.1 K/mm3 (0.1-0.6); MONO % 15.3 % (1.7-9.3); PLATELET COUNT 166 K/mm3 (130-400); RED BLOOD COUNT 5.26 M/mm3 (4.20-5.60); REDCELL DISTRIBUTION WIDTH-CV 12.6 % (11.5-14.5)
[2022-04-13 10:09] LABS: INR 1.6 (0.8-3.0); PROTHROMBIN TIME 18.1 SECONDS (9.7-12.8)
[2022-04-13 10:12] LABS: PARTIAL THROMBOPLASTIN TIME 43.6 SECONDS (26.0-37.0)
[2022-04-13 10:19] LABS: ALANINE AMINOTRANSFERASE 9 U/L (0-55); ALBUMIN 4.1 gm/dL (3.4-4.8); ALKALINE PHOSPHATASE 127 U/L (40-150); ANION GAP 13 mmol/L (7-16); AST,SGOT 13 U/L (5-34); BILIRUBIN,TOTAL 1.5 mg/dL (0.2-1.2); BLOOD UREA NITROGEN 13 mg/dL (8-26); CALCIUM 9.7 mg/dL (8.4-10.2); CARBON DIOXIDE 23 mmol/L (23-31); CHLORIDE 105 mmol/L (98-107); CREATININE, serum 1.17 mg/dL (0.72-1.25); GLUCOSE 100 mg/dL (70-99); POTASSIUM 4.1 mmol/L (3.5-4.5); SODIUM 141 mmol/L (136-145)
[2022-04-13 10:26] LABS: TROPONIN-I < 0.010 ng/mL (0.00-0.033)
[2022-04-13 12:31] VITALS: TEMP 97.7
[2022-04-13] MEDS ORDERED: PRILOSEC 20MG20 MG PO (13:32)
[2022-04-13 13:57] VITALS: BP 148/92; PULSE 75
== END 2022-04-13 14:01 | disposition home or self-care (01) ==
LOC: COL.ER 09:34
PROVIDERS: Family Medicine
DX: U07.1 COVID-19 (principal); I48.91 Unspecified atrial fibrillation; Z79.01 Long term (current) use of anticoagulants; Z95.828 Presence of other vascular implants and grafts
CPT/HCPCS: C9113; J3010

== ENCOUNTER 2022-04-19 06:36 | Day surgery (SDC) | payer MEDICARE ==
[2022-04-19] VITALS (9 sets, daily range): BP systolic 114–170; BP diastolic 68–118; PULSE 60–91; TEMP 97.7–97.8
[~2022-04-19] VITALS: Ht 188 cm; Wt 109.5 kg
[~2022-04-19 06:36] MED LIST changes: +PRILOSEC 20MG20 MG PO
[2022-04-19 08:25] LABS: HEMATOCRIT 39.9 % (42.0-52.0); HEMOGLOBIN 13.5 g/dl (13.5-18.0); MEAN CELL VOLUME 88 fl (80.0-100.0); MEAN CORPUSCULAR HEMOGLOBIN 30 pg (27-31); MEAN CORPUSCULAR HGB CONC 34 g/dl (33.0-37.0); MEAN PLATELET VOLUME 9.3 fl (7.4-10.4); PLATELET COUNT 191 K/mm3 (130-400); RED BLOOD COUNT 4.54 M/mm3 (4.20-5.60); REDCELL DISTRIBUTION WIDTH-CV 12.3 % (11.5-14.5)
--- NOTE | 2022-04-19 08:49 | NUR ---
See merge for all medication, assessment, intervention, and vital sign times. Moderate sedation assessment completed in express unit.
[2022-04-19] MEDS ORDERED: PRILOSEC 20MG20 MG PO (08:56)
[2022-04-19] MEDS ORDERED: MIRAPEX0.5 MG PO (08:58)
[2022-04-19] MEDS ORDERED: ASPIRIN 81M81 MG/TA2 PO (09:00)
[2022-04-19] MEDS ORDERED: BETAPACE 80MG80 MG PO (09:01)
[2022-04-19 09:09] LABS: CALCIUM 8.8 mg/dL (8.4-10.2); CREATININE, serum 1.08 mg/dL (0.72-1.25); POTASSIUM 4.1 mmol/L (3.5-4.5)
--- NOTE | 2022-04-19 09:23 | NUR ---
Pt to procedure,report to Coral wilson.Pt called by this nurse to report he went to procedure.
[2022-04-19 10:12] LABS: INR 1.3 (0.8-3.0); PROTHROMBIN TIME 14.4 SECONDS (9.7-12.8)
--- NOTE | 2022-04-19 10:28 | NUR ---
Initial visit; Patient thanked [employer] for looking in on him and offering prayer, encouragement and God's blessings prior to his surgical procedure.
--- NOTE | 2022-04-19 16:17 | NUR ---
PATIENT RESTING IN BED COMFORTABLY. NO COMPLAINTS OF PAIN. REMOVED ICE PACK AFTER 2 HOURS. STATED IT WAS MORE IRRITATING THAT RELIEVING. PATIENT ORDERING MEAL. WILL CONTINUE TO MONITOR.
--- NOTE | 2022-04-19 17:54 | NUR ---
PATIENT ASSESMENT COMPLETED. PATIENT EDUCATION ON LUE RESTRICTION PROVIDED. PATIENT HAS HAD NO COMPLAINTS OF PAIN. RESTING COMFORTABLY IN BED. PATIENT AMBULATES INDEPEDENTLY WITH NO CONCERNS FROM THIS NURSE. VITALS REMAINED STABLE DURING POST-OP CHECKS. PATIENT SURGICAL SITE REMAINS SOFT, NON-TENDER, AND DRESSING IS CLEAN DRY AND INTACT. NO SIGNIFICANT EVENTS THIS SHIFT.
--- NOTE | 2022-04-19 21:00 | NUR ---
PACEMAKER SITE TO LEFT UPPER CHEST C/D/I. MILD ACHE -DENIES NEED FOR MEDS. PM MEDS GIVEN. POC DISCUSSED. CALL LIGHT WITH IN REACH. NEEDS MET.
[2022-04-20 03:45] VITALS: BP 141/81; PULSE 64; TEMP 97.5
--- NOTE | 2022-04-20 05:42 | NUR ---
Rested through the night without incident. Needs met. Pacemaker site c/d/i.
[2022-04-20 07:00] VITALS: BP 140/84; PULSE 70; TEMP 97.5
[2022-04-20 07:55] LABS: BASO # 0.1 K/mm3 (0.0-0.2); BASO % 0.7 % (0.0-2.0); EOS # 0.3 K/mm3 (0.0-0.7); EOS % 3.2 % (0.0-4.0); GRAN # 5.5 K/mm3 (1.4-6.5); GRAN % 66.6 % (42.2-75.2); HEMATOCRIT 42.4 % (42.0-52.0); HEMOGLOBIN 14.6 g/dl (13.5-18.0); LYMPH # 1.7 K/mm3 (1.2-3.4); LYMPH % 20.2 % (20.0-51.0); MEAN CELL VOLUME 86 fl (80.0-100.0); MEAN CORPUSCULAR HEMOGLOBIN 30 pg (27-31); MEAN CORPUSCULAR HGB CONC 34 g/dl (33.0-37.0); MEAN PLATELET VOLUME 10.1 fl (7.4-10.4); MONO # 0.7 K/mm3 (0.1-0.6); MONO % 8.8 % (1.7-9.3); PLATELET COUNT 191 K/mm3 (130-400); RED BLOOD COUNT 4.91 M/mm3 (4.20-5.60); REDCELL DISTRIBUTION WIDTH-CV 12.3 % (11.5-14.5)
[2022-04-20 07:59] LABS: CALCIUM 9.3 mg/dL (8.4-10.2); CREATININE, serum 1.07 mg/dL (0.72-1.25); POTASSIUM 4.2 mmol/L (3.5-4.5)
[2022-04-20] MEDS ORDERED: CEPHALEXIN500 M1 PO (11:19)
[2022-04-20] MEDS ORDERED: BETAPACE 120MG120 MG PO (11:20)
--- NOTE | 2022-04-20 11:32 | NUR ---
The patient is COVID positive. SW contacted the patient to discuss discharge plan. The patient lives in [place] with his , Elsi. He reports independence with ADLs and has a cane and walker available, if needed. His PCP is Dr. Nii Blankenship and he receives his medications from [facility]. The patient has a Living Will on file, but not a DPOA-HC. He states that he does have a DPOA-HC completed and that he designated his . The patient plans to return home with his upon discharge today. No additional needs at this time.
== END 2022-04-20 11:46 | disposition home or self-care (01) ==
LOC: COL.CAR 06:36 → MEDICAL 13:35 → COL.CAR 04-20 11:46
PROVIDERS: Internal Medicine Cardiovascular Disease
DX: I48.0 Paroxysmal atrial fibrillation (principal); Z79.01 Long term (current) use of anticoagulants; I10 Essential (primary) hypertension; I71.2 Thoracic aortic aneurysm, without rupture; E78.2 Mixed hyperlipidemia; I49.5 Sick sinus syndrome
CPT/HCPCS: OP; C1785; C1894; C1898; J0690; J2250; J3010; J7030; Q9967

== ENCOUNTER 2022-05-22 07:34 | Day surgery (SDC) | payer MEDICARE ==
[~2022-05-22] VITALS: Ht 188 cm; Wt 111.3 kg
[~2022-05-22 07:34] MED LIST changes: +BETAPACE 120MG120 MG PO
[2022-05-22 08:47] VITALS: BP 128/78; PULSE 60; TEMP 98
[2022-05-22 09:20] LABS: BASO # 0.1 K/mm3 (0.0-0.2); BASO % 0.9 % (0.0-2.0); EOS # 0.2 K/mm3 (0.0-0.7); EOS % 3.6 % (0.0-4.0); GRAN # 4.3 K/mm3 (1.4-6.5); GRAN % 64.5 % (42.2-75.2); HEMATOCRIT 38.6 % (42.0-52.0); HEMOGLOBIN 13.1 g/dl (13.5-18.0); LYMPH # 1.3 K/mm3 (1.2-3.4); LYMPH % 19.8 % (20.0-51.0); MEAN CELL VOLUME 88 fl (80.0-100.0); MEAN CORPUSCULAR HEMOGLOBIN 30 pg (27-31); MEAN CORPUSCULAR HGB CONC 34 g/dl (33.0-37.0); MEAN PLATELET VOLUME 9.5 fl (7.4-10.4); MONO # 0.7 K/mm3 (0.1-0.6); MONO % 10.9 % (1.7-9.3); PLATELET COUNT 156 K/mm3 (130-400); RED BLOOD COUNT 4.41 M/mm3 (4.20-5.60); REDCELL DISTRIBUTION WIDTH-CV 13.1 % (11.5-14.5)
[2022-05-22 09:26] LABS: INR 2.1 (0.8-3.0)
[2022-05-22 09:33] LABS: CALCIUM 9.1 mg/dL (8.4-10.2); CREATININE, serum 1.09 mg/dL (0.72-1.25); POTASSIUM 4.2 mmol/L (3.5-4.5)
[2022-05-22 09:36] LABS: PARTIAL THROMBOPLASTIN TIME 45.8 SECONDS (26.0-37.0)
[2022-05-22 09:53] LABS: THYROID STIMULATING HORMONE 0.747 uIU/mL (0.350-4.940)
--- NOTE | 2022-05-22 10:20 | NUR ---
Initial visit; Patient and his Mildred thanked Flight Paramedic for looking in on them and offering prayer for Sebas prior to his Heart Procedure. Flight Paramedic knows Sebas from prior visits and wishes him well and offers God's blessings and will keep him in her prayers.
[2022-05-22 10:45] VITALS: BP 130/83; PULSE 70; TEMP 98.1
[2022-05-22 11:00] VITALS: BP 127/78; PULSE 69
[2022-05-22 11:15] VITALS: BP 134/78; PULSE 69
[2022-05-22 11:30] VITALS: BP 134/89; PULSE 70
[2022-05-22 11:45] VITALS: BP 139/79; PULSE 69
== END 2022-05-22 12:30 | disposition home or self-care (01) ==
LOC: COL.CAR 07:34
PROVIDERS: Internal Medicine Cardiovascular Disease
DX: I48.0 Paroxysmal atrial fibrillation (principal); I10 Essential (primary) hypertension; I71.2 Thoracic aortic aneurysm, without rupture; E78.2 Mixed hyperlipidemia; G47.33 Obstructive sleep apnea (adult) (pediatric); E66.9 Obesity, unspecified; Z68.31 Body mass index [BMI] 31.0-31.9, adult; Z95.0 Presence of cardiac pacemaker; Z79.01 Long term (current) use of anticoagulants; Z79.82 Long term (current) use of aspirin; Z79.899 Other long term (current) drug therapy; Z95.2 Presence of prosthetic heart valve; Z85.46 Personal history of malignant neoplasm of prostate; Z95.5 Presence of coronary angioplasty implant and graft
CPT/HCPCS: J2704

== ENCOUNTER 2022-11-28 08:33 | Day surgery (SDC) | payer MEDICARE ==
[~2022-11-28] VITALS: Ht 188 cm; Wt 113.5 kg
[2022-11-28 08:54] VITALS: BP 155/75; PULSE 73; TEMP 97.2
[2022-11-28] MEDS ORDERED: COZAAR 50MG50 MG/TAB PO (09:08)
[2022-11-28] MEDS ORDERED: PROTONIX 40MG T40 MG PO (09:09)
[2022-11-28 10:25] VITALS: BP 116/65; PULSE 76; TEMP 97.2
--- NOTE | 2022-11-28 10:25 | NUR ---
1025 PATIENT RETURNS TO ROOM 5 VIA CART. PATIENT IS DROWSY BUT ALERTS EASILY TO VERBAL STIMULI. PATIENT AMBULATES TO RECLINER WITH THE ASSISTANCE OF 2 NURSES. RESPIRATIONS EVEN AND UNLABORED. VITAL SIGNS OBTAINED. PATIENT IS IN ROOM. PATIENT REQUESTED A PEPSI WITH NO DIFFICULTIES SWALLOWING. 1030 DOCTOR IN TO SPEAK WITH PATIENT. 1035 THIS NURSE DISCUSSED DISCHARGE INSTRUCTIONS WITH PATIENT AND PATIENT . BOTH VERBALIZED UNDERSTANDING WITH NO FURTHER QUESTIONS OR CONCERNS. 1040 DISCONTINUED IV FROM RIGHT HAND WITH NO DIFFICULTIES. 1045 PATIENT DRESSES SELF. 1055 PATIENT DISCHARGES FROM UNIT VIA WHEELCHAIR.
[2022-11-28 10:40] VITALS: BP 122/89; PULSE 70
== END 2022-11-28 10:55 | disposition home or self-care (01) ==
LOC: SDCO 08:33
DX: D12.8 Benign neoplasm of rectum (principal); K31.7 Polyp of stomach and duodenum; K29.60 Other gastritis without bleeding; K57.30 Diverticulosis of large intestine without perforation or abscess without bleeding; K64.0 First degree hemorrhoids; I10 Essential (primary) hypertension; K21.9 Gastro-esophageal reflux disease without esophagitis; Z86.010 Personal history of colon polyps; Z79.01 Long term (current) use of anticoagulants
CPT/HCPCS: J2704; J7120